=== PATIENT | male | born 1985 | race Caucasian/White ===

== ENCOUNTER 2016-12-15 14:22 | Emergency (ER) | payer OTHER ==
[~2016-12-15] VITALS: Ht 188 cm; Wt 84.1 kg
[~2016-12-15 14:22] MED LIST: COMPAZINE10 MG PO; FLOMAX0.4 MG PO; INDOCIN50 MG PO; LORTAB 5-325 M1 EACH PO; MOTRIN600 MG PO; MOTRIN800 MG PO; TYLENOL REGULA325 MG PO; VYVANSE30 MG PO
[2016-12-15] MEDS ORDERED: SKELAXIN800 MG PO (18:39)
[2016-12-15] MEDS ORDERED: PREDNISONE20 MG PO (18:39)
[2016-12-15] MEDS ORDERED: ZOFRAN ODT4 MG PO (18:39)
[2016-12-15 18:40] LABS: HEMATOCRIT 43.8 % (38.0-50.0); MCH 32.6 PG (29.0-34.0); MCHC 33.6 G/DL (30.0-36.0); MCV 97.1 FL (86-99); MEAN PLAT.VOLUME 9.3 uM^3 (9.0-12.4); PLATELET COUNT 248 K/uL (156-360); RBC DIS.WIDTH-CV 12.7 % (11.8-14.6); RBC DIS.WIDTH-SD 45.7 % (39-53); RED BLOOD COUNT 4.51 M/uL (4.00-5.50); WHITE BLOOD COUNT 7.8 K/uL (4.1-10.2)
[2016-12-15 18:49] LABS: CHLORIDE 105 mEq/L (99-109); POTASSIUM 4.4 mEq/L (3.7-5.4); SODIUM 140 mEq/L (136-147)
[2016-12-15 18:51] LABS: GLUCOSE 92 mg/dL (70-99)
[2016-12-15 18:52] LABS: ANION GAP 8 MEQ/L (2-14)
[2016-12-15 18:53] LABS: TOTAL BILIRUBIN 0.4 mg/dL (0.0-1.0)
[2016-12-15 18:55] LABS: ALKALINE PHOSPHATASE 66 IU/L (3-129); GFR ESTIMATE (CALCULATED) > 59 mL/min/
[2016-12-15 18:56] LABS: UREA NITROGEN (BUN) 13 mg/dL (9-23)
[2016-12-15 18:58] LABS: LIPASE 33 U/L (1.0-51.0)
[2016-12-15 19:52] VITALS: BP 121/91
== END 2016-12-15 19:53 | disposition home or self-care (01) ==
LOC: EME 14:22
PROVIDERS: Physician Assistant
DX: M54.2 Cervicalgia (principal); R11.2 Nausea with vomiting, unspecified; R53.83 Other fatigue; R51 Headache; R20.0 Anesthesia of skin
CPT/HCPCS: 80053; 83690; 85027; 99281; 99283